=== PATIENT | male | born 1985 | race Caucasian/White ===

== ENCOUNTER 2023-10-23 04:35 | Emergency (ER) | payer BC ==
[2023-10-23] MEDS: Sodium Chloride 0.9% 10 ML Syringe FLUSH PRN (05:30)
[2023-10-23] MEDS: Sodium Chloride 0.9% 1,000 ML IV ONE (05:30)
[2023-10-23] MEDS: Meclizine 25 MG Tab PO ONE (05:30)
[2023-10-23 05:31] LABS: BASOPHILS ABSOLUTE AUTO 0.1 K/mm3 (0.0-0.2); BASOPHILS PERCENT AUTO 0.5 % (0.0-1.0); HEMATOCRIT 51.9 % (42.0-52.0); HEMOGLOBIN 18.8 gm/dl (14.0-18.0); IMMATURE GRAN ABSOLUTE AUTO 0.05 K/mm3 (0.00-0.05); IMMATURE GRAN PERCENT AUTO 0.4 % (0.0-0.4); LYMPHOCYTES ABSOLUTE AUTO 1.4 K/mm3 (1.0-4.8); LYMPHOCYTES PERCENT AUTO 11.8 % (24.0-44.0); MEAN CORPUSCULAR HGB CONC 36.2 g/dl (32.0-36.0); MEAN CORPUSCULAR VOLUME 85.5 fl (83.0-99.0); MEAN PLATELET VOLUME 10.7 fl (9.4-12.4); MONOCYTES ABSOLUTE AUTO 0.4 K/mm3 (0.0-0.8); MONOCYTES PERCENT AUTO 3.3 % (0.0-8.0); NEUTROPHILS ABSOLUTE AUTO 10.1 K/mm3 (1.8-7.7); PLATELET COUNT,PLT 299 K/mm3 (150-400); RED BLOOD CELL COUNT 6.07 M/mm3 (4.52-5.90); WHITE BLOOD CELL COUNT,WBC 12.01 K/mm3 (3.9-11.3)
[2023-10-23 05:36] LABS: A/G RATIO 1.3 (1-2); ALBUMIN 4.7 g/dl (3.4-5.0); ANION GAP 20.9 (5-15); BILIRUBIN TOTAL 2.1 mg/dL (0.2-1.0); BUN/CREATININE RATIO 19.1 (14-18); CALCIUM 9.8 mg/dL (8.5-10.1); CREATININE 1.1 mg/dL (0.7-1.3); EST CRCL DRUG DOSING (CG) 94.02 mL/min; MAGNESIUM 1.9 mg/dL (1.8-2.4); POTASSIUM,K 3.9 mEq/L (3.5-5.1); PROTEIN TOTAL,TP 8.3 g/dl (6.4-8.2)
== END 2023-10-23 06:56 | disposition home or self-care (01) ==
LOC: JD.ED 04:35
DX: R42 Dizziness and giddiness (principal); R11.2 Nausea with vomiting, unspecified; I10 Essential (primary) hypertension; E78.00 Pure hypercholesterolemia, unspecified; E11.9 Type 2 diabetes mellitus without complications; Z86.16 Personal history of COVID-19; Z79.899 Other long term (current) drug therapy; Z88.0 Allergy status to penicillin
CPT/HCPCS: 36415; 80053; 82947; 83735; 85025; 93005; 96360; 99284; A9270; J3490; J7030